=== PATIENT | male | born 1980 | race Caucasian/White ===

== ENCOUNTER 2020-08-13 02:09 | Emergency (ER) | payer SELFPAY ==
[2020-08-13 02:10] VITALS: BP 143/102; PULSE 80; RESP 15; TEMP 36.6; O2SAT 99; BMI 25.4
[2020-08-13 02:17] VITALS: BP 124/93; O2SAT 98
--- NOTE | 2020-08-13 02:22 | CT_ITS ---
STUDY: CT ABDOMEN AND PELVIS WITHOUT CONTRAST REASON FOR EXAM: Male, 40 years old. Pain -- left flank pain ?? stone RADIATION DOSAGE (If Supplied By Facility): CTDIvol = ( 8.56 ) mGy, DLP = ( 464.03 ) mGycm TECHNIQUE: Transaxial images were obtained from the dome of the diaphragm to the symphysis pubis without oral contrast, and without intravenous contrast. Sagittal and coronal images were reconstructed. Individualized dose optimization techniques were used for this CT. COMPARISON: None. FINDINGS: The visualized lung bases are unremarkable. The visualized portions of the heart are within normal limits. Normal liver. Normal gallbladder and extrahepatic biliary system. Normal spleen. Normal pancreas. Normal bilateral adrenal glands. Normal right kidney. Normal left kidney. Normal visualized stomach. Normal small intestine. Normal colon. The appendix is visualized and appears normal. Normal abdominal aorta. Normal inferior vena cava. Normal retroperitoneum. Normal urinary bladder. Normal abdominal wall. Normal osseous structures. CT/Abdomen/Pelvis without Cont IMPRESSION: Normal unenhanced CT of the abdomen and pelvis. Electronically Signed: Gladis Shannon MD at 4:25 EDT Tel , Service support ,
--- NOTE | 2020-08-13 02:23 | ED.DCSUM_ITS ---
- ER Visit Summary Date of Service: 08/13/20 Chief Complaint: Left flank pain History of Present Illness: The patient is a 40 M past medical history of migraine headaches and prior tonsillectomy. The states for almost 2 weeks he has had intermittent left flank pain. He thought was from possibly a hernia. Because he is also having some groin pain. He denies any dysuria. He denies any hematuria. He also thought this possibly could be secondary to a kidney stone. He has never had a diagnosed kidney stone nor is he passed anything that looked like a kidney stone. He denies any fever or chills. There has been no trauma. Pain basically is his left flank and groin region. Physical Examination: Middle-aged male no acute distress vital signs stable afebrile. Complaining some pain. H EENT exam unremarkable. Lungs clear to auscultation bilaterally. Heart regular rhythm no murmur. Rate about 80. Abdomen is soft. Mildly tender left flank. No rebound, guarding or rigidity. No distention. No signs of trauma. No bruising. Normal bowel sounds. No peritoneal signs. Right abdomen nontender. Sternal exam no lymphadenopathy. Mild tenderness of the left inguinal region. Possibly small hernia. No incarceration or strangulation. Both testicles are nontender. There is no signs of torsion. No masses. No orchitis. Tenderness on palpation of the left inguinal canal. Moving all 4 extremities. Neurovascular intact. Neurologic exam normal. Back nontender. Test Results: CBC shows elevated white count 21,000. Hemoglobin 16. No bands. Chemistries unremarkable normal creatinine gap. Urinalysis normal no signs of infection nor blood. CAT scan study done flank study without contrast shows no acute abnormality. Read by the radiologist reviewed by me. The appendix is also seen is normal. There is no signs of any stones. Multiple repeat exams patient is doing well. Abdomen is benign. I do not see any obvious signs of hernia. There is no strangulated or incarcerated hernia. He has mild tenderness of the left inguinal canal. The patient and I and his mother was present in the room discussed all of his test results and outpatient follow-up. At 4:32 AM I repeated his temperature and it was 97.7 orally. Emergency Department Course and Treatment: Patient with left flank and groin pain. Treated with IV morphine, Toradol and Zofran. CAT scan labs being obtained. Treatment Plan: Discharged to home. Tylenol and/or Motrin for pain. Follow-up with Dr. Raulito Martin for further evaluation for possible left inguinal hernia. Follow-up with local primary care physician. Disposition: Discharge Impression: Acute left flank pain of uncertain etiology Leukocytosis Rule out left inguinal hernia This note was generated with [employer] dictation software. It may contain incorrect words, spelling, and punctuation that were not noted in review of the chart prior to signing
[2020-08-13 02:25] VITALS: BP 124/93; PULSE 80; RESP 15; TEMP 36.6; O2SAT 98
[2020-08-13 02:27] LABS: Absolute Lymphocyte Count 4.23 X10^3/uL (0.83-4.51); Absolute Neutrophil Count 14.9 X10^3/uL (2.0-7.7); Basophil% 0.5 % (0-1); Eosinophil# 0.68 X10^3/uL; Eosinophils% 3.2 % (0-5); Hematocrit 48.8 % (40-54); Hemoglobin 16.3 g/dL (13.0-16.5); Lymphocyte # 4.23 X10^3/ul (4.0); Lymphocyte % 19.6 % (19-41); Mean Corp Hgb Conc 33.4 g/dL (32-36); Mean Corpuscular Volume 86.7 fL (80-94); Mean Platelet Vol. 10.2 fl (6.2-12.0); Monocyte# 1.57 X10^3/uL; Monocyte% 7.3 % (0-10); NRBC Flagged by Analyzer 0 % (0-5); Neutrophil # 14.86 X10^3/uL (2.7-7.7); Neutrophil % 68.9 % (47-70); POSITIVE DIFFERENTIAL YES; Platelet Count 313 K/mm3 (150-450); RBC Distribution Width CV 13.3 % (11.6-14.6); Red Blood Count 5.63 M/mm3 (4.6-6.2); White Blood Count 21.6 K/mm3 (4.4-11.0)
[2020-08-13 02:29] LABS: Differential Indicated SCAN CRITERIA MET
[2020-08-13] MEDS: morphine 8 MG/ML Syringe IV (02:38)
[2020-08-13 02:39] LABS: Anion Gap 4 (5-15); BUN 14 mg/dL (7-18); BUN/Creat Ratio 13.9 RATIO (10-20); Calcium,Total 9.2 mg/dL (8.5-10.1); Chloride 103 mmol/L (98-107); Creatinine, Serum 1.01 mg/dL (0.70-1.30); EST Glomerular Filtration Rate 87 mL/min (>60); Est Glom Filt Rate - Afr Amer 105 mL/min (>60); Glucose 104 mg/dL (74-106); Potassium 3.5 mmol/L (3.5-5.1); Sodium Level 136 mmol/L (136-145)
[2020-08-13] MEDS: Ketorolac 30 MG/ML Syringe IV (02:39)
[2020-08-13] MEDS: Ondansetron 4 MG/2 ML Vial IV (02:39)
[2020-08-13 03:25] VITALS: BP 124/93; PULSE 80; RESP 15; TEMP 36.6; O2SAT 98
[2020-08-13 03:43] LABS: Bacteria 0 SEEN /hpf (None Seen); Mucous, Urine 0 SEEN /hpf (<or=2+); Red Blood Cells-Urine 0 SEEN /hpf (0-5); Squamous Epithelial Cells - UA 0 SEEN /hpf (0-5); White Blood Cells 0 SEEN /hpf (0-5)
[2020-08-13 03:49] LABS: Color, Urine Yellow (Yellow); Glucose, Dipstick Normal (Normal); Ketone-Dipstick Negative (Negative); Leukocyte Esterase-Dipstick Negative /ul (Negative); Nitrite-Dipstick Negative (Negative); Occult Blood-Urine Negative /ul (Negative); Protein-Dipstick Negative (Negative); Urine Bilirubin Dipstick Negative (Negative); Urine Clarity Clear (Clear); Urine Urobilinogen Normal (Normal)
[2020-08-13 04:30] VITALS: BP 110/70; PULSE 77; RESP 16; O2SAT 98
--- NOTE | 2020-08-13 04:40 | ED.DEP ---
ED Disposition - Plan for ED Patient: Disposition: Home or Assisted Living Instructions: ED Flank Pain, Uncertain Cause Referrals: Raulito Martin MD [STAFF PHYSICIAN] - 1-2 Weeks Dm Zurita MD [[facility]] - 1-2 Weeks Additional Instructions: No specific cause for your abdominal pain tonight. There is no signs of a kidney stone on either your urinalysis or your CAT scan. Your CAT scan showed no abnormalities. Follow-up with Dr. Raulito Martin for further evaluation for possible left inguinal hernia. Follow-up with Dr. Zurita to obtain a local primary care physician.
[2020-08-13 04:53] VITALS: BP 110/70; PULSE 80; RESP 18; O2SAT 98
[2020-08-14 12:20] LABS: Pathologist Review Reviewed
== END 2020-08-13 04:54 | disposition home or self-care (01) ==
PROVIDERS: Emergency Provider Emergency Medicine
DX: R10.9 Unspecified abdominal pain (principal); D72.829 Elevated white blood cell count, unspecified; F17.200 Nicotine dependence, unspecified, uncomplicated
CPT/HCPCS: 74176; 80048; 81001; 85025; 96374; 96375; 99283; J7030; A4216; J2405